=== PATIENT | female | born 2000 | race Hispanic/Latino ===

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

== ENCOUNTER 2020-12-25 07:12 | Emergency (ER) | payer BC ==
--- OUTSIDE RECORDS SUMMARY | 2020-12-25 07:16 | XMS REPORT | Continuity of Care Document ---
:2000 Author Organization [facility] t Address [address] [place] [address] Care Team Providers Name Role Phone Unavailable Unavailable Unavailable Problems This patient has no known problems. Allergies, Adverse Reactions, Alerts Allergy Allergy Status Severity Reaction(s) Onset Inactive Treating Comm ents Source Name Type Date Date Clinician No Known DA Active U [facility] Drug 06-30 Allergie 00:00: s 00 No Known DA Active U [facility] Drug 06-18 Allergie 00:00: s 00 Medications This patient has no known medications. Vital Signs Vital Name Observation Time Observation Value Comments Source Body Mass Index 2020-09-13 14:10:02 32.1 Height 2020-09-13 14:10:02 160.02\S\63 Weight 2020-09-13 14:10:02 07815.219\S\2896 Body Mass Index 2020-08-06 15:23:08 32.1 Height 2020-08-06 15:23:08 160.02\S\63 Weight 2020-08-06 15:23:08 07363.219\S\2896 NB Weight 2020-07-08 06:48:09 3100\S\109.349 Have you Lost Weight 2020-07-08 06:48:09 No Without Trying in the Past 6 Months? Attempted 2020-07-08 06:48:09 N Respiratory 2020-07-08 06:48:09 No respiratory distress /min ANDREA CHARGE Pulse Oximetry 2020-07-08 06:48:09 Single Pulse Ox /min 02 Sat by Pulse Oximetry 2020-07-08 06:48:09 98 /min Height 2020-07-08 06:48:09 160.02\S\63 Pulse Rate 2020-07-08 06:48:09 85 /min Pulse Strength 2020-07-08 06:48:09 Normal /min Pulse Assessment Method 2020-07-08 06:48:09 Palpation /min Respiratory Rate 2020-07-08 06:48:09 18 /min Respiratory Depth 2020-07-08 06:48:09 Normal /min Respiratory Effort 2020-07-08 06:48:09 Spontaneous /min Respiratory Pattern 2020-07-08 06:48:09 Normal /min Temperature 2020-07-08 06:48:09 36.6\S\97.9 Weight 2020-07-08 06:48:09 29857.626\S\2880 Respiratory 2020-07-03 16:24:24 No respiratory distress /min 02 Sat by Pulse Oximetry 2020-07-03 16:24:24 98 /min Height 2020-07-03 16:24:24 160.02\S\63 Pulse Rate 2020-07-03 16:24:24 85 /min Pulse Strength 2020-07-03 16:24:24 Normal /min Pulse Assessment Method 2020-07-03 16:24:24 Palpation /min Respiratory Rate 2020-07-03 16:24:24 18 /min Respiratory Depth 2020-07-03 16:24:24 Normal /min Respiratory Effort 2020-07-03 16:24:24 Spontaneous /min Respiratory Pattern 2020-07-03 16:24:24 Normal /min Temperature 2020-07-03 16:24:24 36.6\S\97.9 Weight 2020-07-03 16:24:24 85736.626\S\2880 ANDREA CHARGE Pulse Oximetry 2020-07-03 16:24:23 Single Pulse Ox /min NB Weight 2020-07-03 16:24:23 3100\S\109.349 Have you Lost Weight 2020-07-03 16:24:23 No Without Trying in the Past 6 Months? Attempted 2020-07-03 16:24:23 N Respiratory 2020-07-03 16:07:02 No respiratory distress /min 02 Sat by Pulse Oximetry 2020-07-03 16:07:02 98 /min Height 2020-07-03 16:07:02 160.02\S\63 Pulse Rate 2020-07-03 16:07:02 85 /min Pulse Strength 2020-07-03 16:07:02 Normal /min Pulse Assessment Method 2020-07-03 16:07:02 Palpation /min Respiratory Rate 2020-07-03 16:07:02 18 /min Respiratory Depth 2020-07-03 16:07:02 Normal /min Respiratory Effort 2020-07-03 16:07:02 Spontaneous /min Respiratory Pattern 2020-07-03 16:07:02 Normal /min Temperature 2020-07-03 16:07:02 36.6\S\97.9 Weight 2020-07-03 16:07:02 37285.626\S\2880 ANDREA CHARGE Pulse Oximetry 2020-07-03 16:07:02 Single Pulse Ox /min NB Weight 2020-07-03 16:07:02 3100\S\109.349 Have you Lost Weight 2020-07-03 16:07:02 No Without Trying in the Past 6 Months? Attempted 2020-07-03 16:07:02 N ANDREA CHARGE Pulse Oximetry 2020-07-03 16:06:31 Single Pulse Ox /min NB Weight 2020-07-03 16:06:31 3100\S\109.349 Have you Lost Weight 2020-07-03 16:06:31 No Without Trying in the Past 6 Months? Attempted 2020-07-03 16:06:31 N Respiratory 2020-07-03 16:06:31 No respiratory distress /min 02 Sat by Pulse Oximetry 2020-07-03 16:06:31 98 /min Height 2020-07-03 16:06:31 160.02\S\63 Pulse Rate 2020-07-03 16:06:31 85 /min Pulse Strength 2020-07-03 16:06:31 Normal /min Pulse Assessment Method 2020-07-03 16:06:31 Palpation /min Respiratory Rate 2020-07-03 16:06:31 18 /min Respiratory Depth 2020-07-03 16:06:31 Normal /min Respiratory Effort 2020-07-03 16:06:31 Spontaneous /min Respiratory Pattern 2020-07-03 16:06:31 Normal /min Temperature 2020-07-03 16:06:31 36.6\S\97.9 Weight 2020-07-03 16:06:31 81446.626\S\2880 ANDREA CHARGE Pulse Oximetry 2020-07-02 09:20:52 Single Pulse Ox /min NB Weight 2020-07-02 09:20:52 3100\S\109.349 Have you Lost Weight 2020-07-02 09:20:52 No Without Trying in the Past 6 Months? Attempted 2020-07-02 09:20:52 N Respiratory 2020-07-02 09:20:52 No respiratory distress /min 02 Sat by Pulse Oximetry 2020-07-02 09:20:52 98 /min Height 2020-07-02 09:20:52 160.02\S\63 Pulse Rate 2020-07-02 09:20:52 79 /min Respiratory Rate 2020-07-02 09:20:52 17 /min Respiratory Depth 2020-07-02 09:20:52 Normal /min Respiratory Effort 2020-07-02 09:20:52 Spontaneous /min Respiratory Pattern 2020-07-02 09:20:52 Normal /min Temperature 2020-07-02 09:20:52 36.7\S\98.1 Weight 2020-07-02 09:20:52 07002.626\S\2880 Attempted 2020-07-01 08:36:33 N Height 2020-07-01 08:36:33 160.02\S\63 Respiratory Rate 2020-07-01 08:36:33 16 /min Respiratory Depth 2020-07-01 08:36:33 Normal /min Respiratory Effort 2020-07-01 08:36:33 Spontaneous /min Respiratory Pattern 2020-07-01 08:36:33 Normal /min Temperature 2020-07-01 08:36:33 36.9\S\98.4 Weight 2020-07-01 08:36:33 28335.626\S\2880 ANDREA CHARGE Pulse Oximetry 2020-07-01 08:36:32 Single Pulse Ox /min NB Weight 2020-07-01 08:36:32 3100\S\109.349 Have you Lost Weight 2020-07-01 08:36:32 No Without Trying in the Past 6 Months? ANDREA CHARGE Pulse Oximetry 2020-07-01 08:20:11 Single Pulse Ox /min NB Weight 2020-07-01 08:20:11 3100\S\109.349 Have you Lost Weight 2020-07-01 08:20:11 No Without Trying in the Past 6 Months? Attempted 2020-07-01 08:20:11 N Height 2020-07-01 08:20:11 160.02\S\63 Respiratory Rate 2020-07-01 08:20:11 16 /min Respiratory Depth 2020-07-01 08:20:11 Normal /min Respiratory Effort 2020-07-01 08:20:11 Spontaneous /min Respiratory Pattern 2020-07-01 08:20:11 Normal /min Temperature 2020-07-01 08:20:11 36.9\S\98.4 Weight 2020-07-01 08:20:11 63688.626\S\2880 ANDREA CHARGE Pulse Oximetry 2020-07-01 08:04:20 Single Pulse Ox /min NB Weight 2020-07-01 08:04:20 3100\S\109.349 Have you Lost Weight 2020-07-01 08:04:20 No Without Trying in the Past 6 Months? Attempted 2020-07-01 08:04:20 N Height 2020-07-01 08:04:20 160.02\S\63 Respiratory Rate 2020-07-01 08:04:20 16 /min Respiratory Depth 2020-07-01 08:04:20 Normal /min Respiratory Effort 2020-07-01 08:04:20 Spontaneous /min Respiratory Pattern 2020-07-01 08:04:20 Normal /min Temperature 2020-07-01 08:04:20 36.9\S\98.4 Weight 2020-07-01 08:04:20 13781.626\S\2880 ANDREA CHARGE Pulse Oximetry 2020-07-01 07:30:29 Single Pulse Ox /min NB Weight 2020-07-01 07:30:29 3100\S\109.349 Have you Lost Weight 2020-07-01 07:30:29 No Without Trying in the Past 6 Months? Attempted 2020-07-01 07:30:29 N Height 2020-07-01 07:30:29 160.02\S\63 Respiratory Rate 2020-07-01 07:30:29 16 /min Respiratory Depth 2020-07-01 07:30:29 Normal /min Respiratory Effort 2020-07-01 07:30:29 Spontaneous /min Respiratory Pattern 2020-07-01 07:30:29 Normal /min Temperature 2020-07-01 07:30:29 36.9\S\98.4 Weight 2020-07-01 07:30:29 71998.626\S\2880 ANDREA CHARGE Pulse Oximetry 2020-07-01 06:52:36 Single Pulse Ox /min NB Weight 2020-07-01 06:52:36 3100\S\109.349 Have you Lost Weight 2020-07-01 06:52:36 No Without Trying in the Past 6 Months? Attempted 2020-07-01 06:52:36 N Height 2020-07-01 06:52:36 160.02\S\63 Respiratory Rate 2020-07-01 06:52:36 16 /min Respiratory Depth 2020-07-01 06:52:36 Normal /min Respiratory Effort 2020-07-01 06:52:36 Spontaneous /min Respiratory Pattern 2020-07-01 06:52:36 Normal /min Temperature 2020-07-01 06:52:36 36.8\S\98.2 Weight 2020-07-01 06:52:36 67233.626\S\2880 Have you Lost Weight 2020-06-30 09:51:00 No Without Trying in the Past 6 Months? Height 2020-06-30 09:51:00 160.02\S\63 Respiratory Rate 2020-06-30 09:51:00 16 /min Respiratory Depth 2020-06-30 09:51:00 Normal /min Respiratory Effort 2020-06-30 09:51:00 Spontaneous /min Respiratory Pattern 2020-06-30 09:51:00 Normal /min Temperature 2020-06-30 09:51:00 36.8\S\98.2 Weight 2020-06-30 09:51:00 31361.626\S\2880 Have you Lost Weight 2020-06-30 09:48:56 No Without Trying in the Past 6 Months? Height 2020-06-30 09:48:56 160.02\S\63 Respiratory Rate 2020-06-30 09:48:56 16 /min Respiratory Depth 2020-06-30 09:48:56 Normal /min Respiratory Effort 2020-06-30 09:48:56 Spontaneous /min Respiratory Pattern 2020-06-30 09:48:56 Normal /min Temperature 2020-06-30 09:48:56 36.8\S\98.2 Weight 2020-06-30 09:48:56 01831.626\S\2880 Have you Lost Weight 2020-06-30 09:43:18 No Without Trying in the Past 6 Months? Height 2020-06-30 09:43:18 160.02\S\63 Respiratory Rate 2020-06-30 09:43:18 16 /min Respiratory Depth 2020-06-30 09:43:18 Normal /min Respiratory Effort 2020-06-30 09:43:18 Spontaneous /min Respiratory Pattern 2020-06-30 09:43:18 Normal /min Temperature 2020-06-30 09:43:18 36.8\S\98.2 Weight 2020-06-30 09:43:18 69222.626\S\2880 Have you Lost Weight 2020-06-30 09:36:40 No Without Trying in the Past 6 Months? Height 2020-06-30 09:36:40 160.02\S\63 Respiratory Rate 2020-06-30 09:36:40 16 /min Respiratory Depth 2020-06-30 09:36:40 Normal /min Respiratory Effort 2020-06-30 09:36:40 Spontaneous /min Respiratory Pattern 2020-06-30 09:36:40 Normal /min Temperature 2020-06-30 09:36:40 36.8\S\98.2 Weight 2020-06-30 09:36:40 94685.626\S\2880 Have you Lost Weight 2020-06-30 09:31:32 No Without Trying in the Past 6 Months? Height 2020-06-30 09:31:32 160.02\S\63 Respiratory Rate 2020-06-30 09:31:32 16 /min Respiratory Depth 2020-06-30 09:31:32 Normal /min Respiratory Effort 2020-06-30 09:31:32 Spontaneous /min Respiratory Pattern 2020-06-30 09:31:32 Normal /min Temperature 2020-06-30 09:31:32 36.8\S\98.2 Weight 2020-06-30 09:31:32 10527.626\S\2880 Have you Lost Weight 2020-06-30 09:30:00 No Without Trying in the Past 6 Months? Height 2020-06-30 09:30:00 160.02\S\63 Respiratory Rate 2020-06-30 09:30:00 16 /min Respiratory Depth 2020-06-30 09:30:00 Normal /min Respiratory Effort 2020-06-30 09:30:00 Spontaneous /min Respiratory Pattern 2020-06-30 09:30:00 Normal /min Temperature 2020-06-30 09:30:00 36.8\S\98.2 Weight 2020-06-30 09:30:00 98030.626\S\2880 Have you Lost Weight 2020-06-30 08:20:50 No Without Trying in the Past 6 Months? Height 2020-06-30 08:20:50 160.02\S\63 Weight 2020-06-30 08:20:50 46787.626\S\2880 Height 2020-06-30 08:17:15 160.02\S\63 Weight 2020-06-30 08:17:15 45795.626\S\2880 Height 2020-06-30 08:16:45 160.02\S\63 HEIGHT 2020-06-30 08:16:00 160.02 cm WEIGHT 2020-06-30 08:16:00 81.354661 kg Body Mass Index 2020-06-21 10:15:50 32.1 Height 2020-06-21 10:15:50 160.02\S\63 Weight 2020-06-21 10:15:50 96459.219\S\2896 Body Mass Index 2020-06-19 00:16:59 32.1 Height 2020-06-19 00:16:59 160.02\S\63 Weight 2020-06-19 00:16:59 30446.219\S\2896 Body Mass Index 2020-06-18 10:07:20 32.1 Height 2020-06-18 10:07:20 160.02\S\63 Weight 2020-06-18 10:07:20 38156.219\S\2896 WEIGHT 2020-06-18 10:06:00 82.771368 kg HEIGHT 2020-06-18 10:06:00 160.02 cm Procedures This patient has no known procedures. Results This patient has no known results.
[2020-12-25 08:26] LABS: Urine Blood Negative (Negative); Urine Glucose Negative (Negative); Urine Protein Negative (Negative); Urine Specific Gravity >=1.030 (1.005-1.030)
--- NOTE | 2020-12-25 09:45 | EDPHYS ---
Physician Documentation [facility] Name: Jud Rodriguez Age: 20 yrs Sex: Female : 2000 Arrival Date: 12/25/2020 Time: 07:15 Bed Waiting Private MD: ED Physician Micheal Lester HPI: 12/25 09:01 This 20 yrs old Female presents to ER via Ambulatory with complaints of Cough, jr8 Congestion. 09:01 The patient or guardian reports cough, that is intermittent, described as mild, with no jr8 sputum. Onset: The symptoms/episode began/occurred acutely, 6 day(s) ago. Severity of symptoms: At their worst the symptoms were mild, in the emergency department the symptoms are unchanged. Modifying factors: The symptoms are alleviated by nothing, the symptoms are aggravated by nothing. Associated signs and symptoms: Pertinent positives: nausea, rhinorrhea, sore throat. The patient has not experienced similar symptoms in the past. The patient has not recently seen a physician. 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 - Social history:: Smoking status: Patient denies any tobacco usage or history of. ROS: 09:01 Eyes: Negative for injury, pain, redness, and discharge, Neck: Negative for injury, jr8 pain, and swelling, Cardiovascular: Negative for chest pain, palpitations, and edema, Back: Negative for injury and pain, MS/Extremity: Negative for injury and deformity, Skin: Negative for injury, rash, and discoloration, Neuro: Negative for headache, weakness, numbness, tingling, and seizure. 09:01 ENT: Positive for rhinorrhea, sore throat. 09:01 Respiratory: Positive for cough, Negative for shortness of breath, sputum production, wheezing. 09:01 Abdomen/GI: Positive for nausea, Negative for abdominal pain, vomiting, diarrhea. Exam: 09:01 Constitutional: This is a well developed, well nourished patient who is awake, alert, jr8 and in no acute distress. ENT: Nares patent. No nasal discharge, no septal abnormalities noted. Tympanic membranes are normal and external auditory canals are clear. Oropharynx with no redness, swelling, or masses, exudates, or evidence of obstruction, uvula midline. Mucous membranes moist. Neck: Trachea midline, no thyromegaly or masses palpated, and no cervical lymphadenopathy. Supple, full range of motion without nuchal rigidity, or vertebral point tenderness. No Meningismus. Cardiovascular: Regular rate and rhythm with a normal S1 and S2. No gallops, murmurs, or rubs. Normal PMI, no JVD. No pulse deficits. Respiratory: Lungs have equal breath sounds bilaterally, clear to auscultation and percussion. No rales, rhonchi or wheezes noted. No increased work of breathing, no retractions or nasal flaring. Abdomen/GI: Soft, non-tender, with normal bowel sounds. No distension or tympany. No guarding or rebound. No evidence of tenderness throughout. Back: No spinal tenderness. No costovertebral tenderness. Full range of motion. Skin: Warm, dry with normal turgor. Normal color with no rashes, no lesions, and no evidence of cellulitis. MS/ Extremity: Pulses equal, no cyanosis. Neurovascular intact. Full, normal range of motion. Neuro: Awake and alert, GCS 15, oriented to person, place, time, and situation. Cranial nerves II-XII grossly intact. Motor strength 5/5 in all extremities. Sensory grossly intact. Cerebellar exam normal. Normal gait. Vital Signs: 07:38 BP 135 / 104; Pulse 106; Resp 18; Temp 97.2(TE); Pulse Ox 100% ; Weight 70.31 kg; sv Height 5 ft. 3 in. (160.02 cm); Pain 0/10; 07:38 Body Mass Index 27.46 (70.31 kg, 160.02 cm) sv MDM: 08:13 Patient medically screened. jr8 09:42 Data reviewed: vital signs, nurses notes, lab test result(s), and as a result, I will jr8 discharge patient. Data interpreted: Pulse oximetry: on room air is 100 %. Interpretation: normal. Counseling: I had a detailed discussion with the patient and/or guardian regarding: the historical points, exam findings, and any diagnostic results supporting the discharge/admit diagnosis, lab results, the need for outpatient follow up, a family practitioner, an OB/Gyne specialist, to return to the emergency department if symptoms worsen or persist or if there are any questions or concerns that arise at home. ED course: Patient with no active fever here. Covid negative. Patient had positive test here. Will have patient start on vitamins and follow-up with her obstetrics physician. Otherwise recommended [id number] antihistamines for the congestion.. 12/25 08:26 Order name: Urine Dipstick-Ancillary; Complete Time: 08:32 EDMS 12/25 08:54 Order name: Urine --Ancillary (enter results) eb 12/25 09:40 Order name: SARS-COV-2 RT PCR; Complete Time: 09:42 EDMS Administered Medications: No medications were administered Disposition: 10:46 Co-signature as Attending Physician, Micheal Lester MD. rn Disposition Summary: 12/25/20 09:45 Discharge Ordered Location: Home jr8 Problem: new jr8 Symptoms: are unchanged jr8 Condition: Stable jr8 Diagnosis - Acute upper respiratory infection, unspecified jr8 - Encounter for test, result positive jr8 Followup: jr8 - With: Private Physician - When: 5 - 6 days - Reason: Recheck today's complaints, Continuance of care, Re-evaluation by your physician Discharge Instructions: - Discharge Summary Sheet jr8 - Upper Respiratory Infection, Adult jr8 - Morning Sickness jr8 Forms: - Medication Reconciliation Form jr8 - Thank You Letter jr8 - Antibiotic Education jr8 - Prescription Opioid Use jr8 Prescriptions: - promethazine-DM 6.25-15 mg/5 mL Oral syrup - take 5 milliliter by ORAL route every 4-6 hours as needed, not to exceed 30 mL jr8 in 24 hours; 100 milliliter; Refills: 0, Product Selection Permitted Signatures: Dispatcher [employer] EDMS Tiesha Velasco RN RN sv Nieto, Roman, MD MD rn Roszak, Josh, PA PA jr8 Corrections: (The following items were deleted from the chart) 07:37 07:37 PSHx: Unable to Obtain; [facility] 08:05 07:37 Chest Pa And Lat (2 Views)+RAD.RAD.BRZ ordered. EDMS EDMS 08:27 08:05 Chest Single View ordered. EDMS EDMS 08:46 08:17 CORONAVIRUS+MR.LAB.BRZ ordered. EDMS EDMS
--- NOTE | 2020-12-25 09:45 | ER ---
Nurse's Notes [facility] Name: Jud Rodriguez Age: 20 yrs Sex: Female : 2000 Arrival Date: 12/25/2020 Time: 07:15 Bed Waiting Private MD: Diagnosis: Acute upper respiratory infection, unspecified;Encounter for test, result positive Presentation: 12/25 07:36 Chief complaint: Patient states: congestion, non-productive cough (more at night), sv sneezing,sore throat, vomiting since Sunday. Coronavirus screen: Client denies travel out of the [place] in the last 14 days. At this time, the client does not indicate any symptoms associated with coronavirus-19. Ebola Screen: No symptoms or risks identified at this time. Risk Assessment: Do you want to hurt yourself or someone else? Patient reports no desire to harm self or others. Onset of symptoms was December 20, 2020. 07:36 Method Of Arrival: Ambulatory sv 07:36 Acuity: LANE 4 sv 07:38 Initial Sepsis Screen: Does the patient meet any 2 criteria? HR > 90 bpm. No. Patient's sv initial sepsis screen is negative. Does the patient have a suspected source of infection? No. Patient's initial sepsis screen is negative. Triage Assessment: 07:36 General: Appears in no apparent distress. comfortable, Behavior is calm, cooperative, sv appropriate for age. Pain: Denies pain. Neuro: Level of Consciousness is awake, alert, obeys commands, Oriented to person, place, time, situation, Gait is steady. Respiratory: Respiratory effort is even, unlabored. 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 - Social history:: Smoking status: Patient denies any tobacco usage or history of. Screenin:51 Abuse screen: Denies threats or abuse. Denies injuries from another. Nutritional iw screening: No deficits noted. Tuberculosis screening: No symptoms or risk factors identified. Fall Risk None identified. Assessment: 08:20 General: Appears in no apparent distress. comfortable, Behavior is calm, cooperative. iw Cardiovascular: Patient's skin is warm and dry. Respiratory: Airway is patent Breath sounds are clear bilaterally. Derm: Skin is intact, is healthy with good turgor. Musculoskeletal: Range of motion: intact in all extremities. Vital Signs: 07:38 BP 135 / 104; Pulse 106; Resp 18; Temp 97.2(TE); Pulse Ox 100% ; Weight 70.31 kg; sv Height 5 ft. 3 in. (160.02 cm); Pain 0/10; 07:38 Body Mass Index 27.46 (70.31 kg, 160.02 cm) sv ED Course: 07:15 Patient arrived in ED. rg4 07:35 Arm band placed on. sv 07:37 Triage completed. sv 08:12 Vikas Berger PA is PHCP. jr8 08:13 Micheal Lester MD is Attending Physician. jr8 08:20 Patient has correct armband on for positive identification. iw 08:26 Urine Dipstick-Ancillary Sent. mh5 08:26 Urine collected: clean catch specimen, clear, COVID swab sent to lab. 5 08:34 Joyce Bolton, RN is Primary Nurse. iw 09:50 No provider procedures requiring assistance completed. Patient did not have IV access iw during this emergency room visit. Administered Medications: No medications were administered Outcome: 09:45 Discharge ordered by . jr 09:50 Discharged to home ambulatory, with friend. iw 09:50 Condition: good 09:50 Discharge instructions given to patient, Instructed on discharge instructions, follow up and referral plans. Demonstrated understanding of instructions, follow-up care. 09:51 Patient left the ED. iw Signatures: Tiesha Velasco RN RN Joyce Bolton, RN RN Vikas Berger PA PA jr8 Garcia, Rubi Cheri Moe [facility] Corrections: (The following items were deleted from the chart) 07:37 07:37 PSHx: Unable to Obtain; sv sv 07:39 07:36 Chief complaint: Patient states: congestion, non-productive cough (more at sv night), sneezing, vomiting since Sunday. sv 08:46 08:26 CORONAVIRUS+MR.LAB.BRZ drawn and sent. 5 EDMS
[2020-12-25 09:57] VITALS: BP 135/104; TEMP 97.2; O2SAT 100
== END 2020-12-25 09:51 | disposition home or self-care (01) ==
LOC: ER 07:12
DX: J06.9 Acute upper respiratory infection, unspecified (principal); Z32.01 Encounter for pregnancy test, result positive; Z20.822 Contact with and (suspected) exposure to COVID-19
CPT/HCPCS: 81025; 81003; 99283; U0003

== ENCOUNTER 2021-12-09 04:51 | Emergency (ER) | payer BC, OTHER ==
[2021-12-09 08:19] LABS: Absolute Lymphocytes (CBC) 2.7 K/uL (0.7-4.9); Lymphocytes % 29.6 % (15.3-44.8); MCV 78.9 fL (80-100); MPV 8.4 fL (7.6-11.3); RBC Red Blood Cell Count 4.94 M/uL (3.86-4.86)
[2021-12-09] MEDS ORDERED: KETOROLAC 30 MG/ML INJ ONE (08:22)
[2021-12-09 08:30] LABS: Albumin 3.8 g/dL (3.4-5.0); Bilirubin Total 0.2 mg/dL (0.2-1.0); Potassium 4.2 mmol/L (3.5-5.1); Protein, Total 7.9 g/dL (6.4-8.2)
[2021-12-09] MEDS ORDERED: ONDANSETRON 4 MG/2 ML VIAL ONE (09:17)
[2021-12-09] MEDS ORDERED: MORPHINE 2 MG/ML SYR ONE (09:17)
[2021-12-09] MEDS ORDERED: NA CHLORIDE 0.9% 1,000 ML ONE (09:17)
--- NOTE | 2021-12-09 09:33 | RAD REPORT ---
EXAM DESCRIPTION: US - Transvaginal Study Probe - 12/09/2021 9:15 am CLINICAL HISTORY: ABD PAIN COMPARISON: Abdomen Pelvis W Contrast dated 12/09/2021 TECHNIQUE: Endovaginal sonography was performed. FINDINGS: Normal size uterus is present with no myometrial mass. Endometrium is 3 mm with no mass, p olyp or endometrial abnormality seen. Normal size right ovary is seen with small follicles present. Normal blood flow seen in the stroma. N ormal blood flow seen in the left ovary. Approximately 2.8 centimeter oval area of heterogeneous echo genicity seen in the left ovary. There is a small amount of fluid adjacent to the uterus, bladder and left ovary. No worrisome solid mass. No fallopian tube dilatation confirmed. IMPRESSION: Approximately 2.8 centimeter heterogeneous left ovarian mass with adjacent fluid in the adnexa on the left and adjacent to the uterus and bladder. Ruptured or leaking left ovarian cyst with hemorrhage is the most likely etiology.
--- NOTE | 2021-12-09 09:39 | RAD REPORT ---
EXAM DESCRIPTION: CT - Abdomen Pelvis W Contrast - 12/09/2021 8:57 am CLINICAL HISTORY: Abdominal pain, acute, nonlocalized COMPARISON: Abdomen Pelvis W Contrast dated 05/06/2018 TECHNIQUE: Biphasic, helical CT imaging of the abdomen and pelvis was performed following 100 ml non -ionic IV contrast. No oral contrast administered. All CT scans are performed using dose optimization technique as appropriate and may include automated exposure control or mA/KV adjustment according to patient size. FINDINGS: No suspicious findings in the lung bases. The liver, spleen, and pancreas show no suspicious findings. Gallbladder and biliary tree are also wi thout suspicious finding. Symmetric renal function is seen with no hydronephrosis or suspicious renal mass. No pyelonephritis o r acute parenchymal process. No bladder abnormalities. No adrenal abnormalities. No uterine abnormality identified. No focal right ovarian finding seen. Left ovary appears to contain a 2.8 centimeter cyst. There is a minimal amount of fluid adjacent to the left ovary, bladder and ut erus. No dilated bowel loops or bowel wall thickening. Appendix is normal. No pneumatosis or free air. No f ocal inflammatory stranding. No hernia, mass or bulky lymphadenopathy. No suspicious bony findings. IMPRESSION: Contrast enhanced CT abdomen and pelvis showing no emergent finding. Probable left ovarian cyst rupture with minimal hemorrhagic component within the cyst. No large hemat claribel or emergent pelvic finding.
--- NOTE | 2021-12-09 09:41 | ER ---
Nurse's Notes [facility] Name: Jud Rodriguez Age: 21 yrs Sex: Female : 2000 Arrival Date: 12/09/2021 Time: 04:54 Bed 16 Private MD: Diagnosis: Pelvic and perineal pain;Dysmenorrhea, unspecified;Other ovarian cysts-left , hemorrhagic Presentation: 12/09 05:37 Chief complaint: Patient states: "I think I have an ovarian cyst on my left ovary. I vc1 had one in 2018 and the pain feels similar. I also just had a baby 3 months ago.". Coronavirus screen: Vaccine status: Patient reports being unvaccinated. At this time, the client does not indicate any symptoms associated with coronavirus-19. Ebola Screen: No symptoms or risks identified at this time. Initial Sepsis Screen: Does the patient meet any 2 criteria? HR > 90 bpm. No. Patient's initial sepsis screen is negative. Does the patient have a suspected source of infection? No. Patient's initial sepsis screen is negative. Risk Assessment: Do you want to hurt yourself or someone else? Patient reports no desire to harm self or others. Onset of symptoms was December 09, 2021 at 04:30. 05:37 Method Of Arrival: Ambulatory vc1 05:37 Acuity: LANE 3 vc1 Triage Assessment: 06:10 General: Appears uncomfortable, Behavior is calm, cooperative. Pain: Complains of pain kd3 in left lower quadrant. Neuro: Level of Consciousness is awake, alert, obeys commands, Oriented to person, place, time, situation. Respiratory: Airway is patent Trachea midline Respiratory effort is even, unlabored, Respiratory pattern is regular. 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 - Social history:: Smoking status: Patient denies any tobacco usage or history of. - Family history:: not pertinent. Screenin:45 Abuse screen: Denies threats or abuse. Nutritional screening: No deficits noted. vc1 Tuberculosis screening: No symptoms or risk factors identified. Fall Risk None identified. Assessment: 07:30 General: Appears in no apparent distress. uncomfortable, Behavior is calm, cooperative, jl7 appropriate for age. Pain: Complains of pain in left lower quadrant Pain radiates to anterior aspect of left lateral abdomen Pain currently is 6 out of 10 on a pain scale. at worst was 9 out of 10 on a pain scale. Quality of pain is described as sharp, Pain began 3 hours ago. Is continuous. Neuro: Level of Consciousness is awake, alert, obeys commands, Oriented to person, place, time, situation. Cardiovascular: Patient's skin is warm and dry. Respiratory: Airway is patent Respiratory effort is even, unlabored, Respiratory pattern is regular, symmetrical. GI: Patient currently denies diarrhea, nausea, vomiting. : Denies burning with urination. Derm: Skin is pink, warm \\T\\ dry. 08:30 Reassessment: Patient appears in no apparent distress at this time. No changes from jl7 previously documented assessment. Patient and/or family updated on plan of care and expected duration. Pain level reassessed. Patient is alert, oriented x 3, equal unlabored respirations, skin warm/dry/pink. Vital Signs: 05:37 BP 136 / 76; Pulse 105; Resp 18; Temp 97.6(O); Pulse Ox 100% ; Weight 68.04 kg; Height vc1 5 ft. 3 in. (160.02 cm); Pain 7/10; 09:19 BP 128 / 86; Pulse 80; Resp 15; Pulse Ox 100% ; jl7 05:37 Body Mass Index 26.57 (68.04 kg, 160.02 cm) vc1 ED Course: 04:54 Patient arrived in ED. bp1 05:40 Honorio Perez MD is Attending Physician. mh7 05:41 Triage completed. vc1 05:44 Arm band placed on right wrist. vc1 05:45 Patient has correct armband on for positive identification. Placed in gown. Cardiac vc1 monitor on. Pulse ox on. 06:10 Sabina Fry RN is Primary Nurse. kd3 07:21 Attending Physician role handed off by Honorio Perez MD [facility] 07:21 Ronnie Sands MD is Attending Physician. phan 07:30 Initial lab(s) drawn, by nh, sent to lab. Urine collected: clean catch specimen, clear. jl7 Inserted saline lock: 20 gauge in left antecubital area, using aseptic technique. Blood collected. 08:22 Primary Nurse role handed off by Sabina Fry RN jl7 08:22 Venita Munroe RN is Primary Nurse. jl7 08:59 CT Abd/Pelvis - IV Contrast Only In Process Unspecified. EDMS 09:16 US Transvaginal Study (Probe) In Process Unspecified. EDNJ 09:41 Soto Payne MD is Referral Physician. [facility] 09:54 No provider procedures requiring assistance completed. IV discontinued, intact, jl7 bleeding controlled, No redness/swelling at site. Pressure dressing applied. Administered Medications: 08:25 Drug: Ketorolac 15 mg Route: IVP; Site: left antecubital; jl7 08:45 Follow up: Response: No adverse reaction; Pain is unchanged, physician notified jl7 09:15 Drug: NS 0.9% 1000 ml Route: IV; Rate: 1 bolus; Site: left antecubital; jl7 09:15 Drug: Zofran (Ondansetron) 4 mg Route: IVP; Site: left antecubital; jl7 09:53 Follow up: Response: No adverse reaction jl7 09:18 Drug: morphine 2 mg Route: IVP; Infused Over: 4 mins; Site: left antecubital; jl7 09:30 Follow up: Response: No adverse reaction; Pain is decreased jl7 Medication: 06:12 VIS not applicable for this client. kd3 Outcome: 09:41 Discharge ordered by . phan 09:54 Discharged to home ambulatory. jl7 09:54 Condition: stable 09:54 Discharge instructions given to patient, Instructed on discharge instructions, follow up and referral plans. medication usage, Demonstrated understanding of instructions, follow-up care, medications, Prescriptions given X 2. 09:54 Patient left the ED. jl7 Signatures: Dispatcher [employer] EDNJ Ronnie Sands MD MD cha Leal, Jahala, RN RN jl7 Manisha Long Maurice, MD MD 7 Sabina Fry, RN RN kd3 Anastasia, Trixie, RN RN vc1
--- NOTE | 2021-12-09 09:41 | EDPHYS ---
Physician Documentation [facility] Name: Jud Rodriguez Age: 21 yrs Sex: Female : 2000 Arrival Date: 12/09/2021 Time: 04:54 Bed 16 Private MD: GILDA Physician Ronnie Sands HPI: 12/09 09:12 This 21 yrs old Female presents to ER via Ambulatory with complaints of Pelvic phan Pain. 09:12 The patient presents with pelvic pain, that is located in/on the right lower quadrant phan and left lower quadrant. Onset: The symptoms/episode began/occurred this morning. Modifying factors: The symptoms are alleviated by remaining still, the symptoms are aggravated by movement, walking. Associated signs and symptoms: The patient has no apparent associated signs or symptoms. Severity of symptoms: At their worst the symptoms were moderate, in the emergency department the symptoms are unchanged. The patient is sexually active, reportedly has a single partner. The patient has experienced similar episodes in the past, a few times. 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 - Social history:: Smoking status: Patient denies any tobacco usage or history of. - Family history:: not pertinent. ROS: 09:12 Constitutional: Negative for fever, chills, and weight loss, Eyes: Negative for injury, phan pain, redness, and discharge, ENT: Negative for injury, pain, and discharge, Neck: Negative for injury, pain, and swelling, Cardiovascular: Negative for chest pain, palpitations, and edema, Respiratory: Negative for shortness of breath, cough, wheezing, and pleuritic chest pain, Back: Negative for injury and pain, : Negative for injury, bleeding, discharge, and swelling, MS/Extremity: Negative for injury and deformity, Skin: Negative for injury, rash, and discoloration, Neuro: Negative for headache, weakness, numbness, tingling, and seizure, Psych: Negative for depression, anxiety, suicide ideation, homicidal ideation, and hallucinations, Allergy/Immunology: Negative for hives, rash, and allergies, Endocrine: Negative for neck swelling, polydipsia, polyuria, polyphagia, and marked weight changes, Hematologic/Lymphatic: Negative for swollen nodes, abnormal bleeding, and unusual bruising. 09:12 Abdomen/GI: Positive for abdominal pain, abdominal cramps, of the right lower quadrant and left lower quadrant. Exam: 09:12 Constitutional: This is a well developed, well nourished patient who is awake, alert, phan and in no acute distress. Head/Face: Normocephalic, atraumatic. Eyes: Pupils equal round and reactive to light, extra-ocular motions intact. Lids and lashes normal. Conjunctiva and sclera are non-icteric and not injected. Cornea within normal limits. Periorbital areas with no swelling, redness, or edema. ENT: Nares patent. No nasal discharge, no septal abnormalities noted. Tympanic membranes are normal and external auditory canals are clear. Oropharynx with no redness, swelling, or masses, exudates, or evidence of obstruction, uvula midline. Mucous membranes moist. Neck: Trachea midline, no thyromegaly or masses palpated, and no cervical lymphadenopathy. Supple, full range of motion without nuchal rigidity, or vertebral point tenderness. No Meningismus. Chest/axilla: Normal chest wall appearance and motion. Nontender with no deformity. No lesions are appreciated. Cardiovascular: Regular rate and rhythm with a normal S1 and S2. No gallops, murmurs, or rubs. Normal PMI, no JVD. No pulse deficits. Respiratory: Lungs have equal breath sounds bilaterally, clear to auscultation and percussion. No rales, rhonchi or wheezes noted. No increased work of breathing, no retractions or nasal flaring. Back: No spinal tenderness. No costovertebral tenderness. Full range of motion. Skin: Warm, dry with normal turgor. Normal color with no rashes, no lesions, and no evidence of cellulitis. MS/ Extremity: Pulses equal, no cyanosis. Neurovascular intact. Full, normal range of motion. Neuro: Awake and alert, GCS 15, oriented to person, place, time, and situation. Cranial nerves II-XII grossly intact. Motor strength 5/5 in all extremities. Sensory grossly intact. Cerebellar exam normal. Normal gait. Psych: Awake, alert, with orientation to person, place and time. Behavior, mood, and affect are within normal limits. 09:12 Abdomen/GI: Inspection: abdomen appears normal, Bowel sounds: normal, Palpation: mild abdominal tenderness, in the right lower quadrant and left lower quadrant, Liver: no appreciated palpable abnormalities, Hernia: not appreciated. Vital Signs: 05:37 BP 136 / 76; Pulse 105; Resp 18; Temp 97.6(O); Pulse Ox 100% ; Weight 68.04 kg; Height vc1 5 ft. 3 in. (160.02 cm); Pain 7/10; 09:19 BP 128 / 86; Pulse 80; Resp 15; Pulse Ox 100% ; jl7 05:37 Body Mass Index 26.57 (68.04 kg, 160.02 cm) vc1 MDM: 07:21 Patient medically screened. [facility] 09:17 Differential diagnosis: dysmenorrhea, ectopic , endometriosis, nonspecific phan abdominal pain, ovarian cyst, uterine fibroids, urinary tract infection. Data reviewed: vital signs, nurses notes, lab test result(s), radiologic studies, CT scan. Data interpreted: quality assurance monitor: not applicable for this patient encounter. rate is 105 beats/min, rhythm is regular, Pulse oximetry: on room air is 100 %. Counseling: I had a detailed discussion with the patient and/or guardian regarding: the historical points, exam findings, and any diagnostic results supporting the discharge/admit diagnosis, lab results, radiology results, the need for outpatient follow up, for definitive care, an OB/Gyne specialist. 12/09 07:04 Order name: CBC with Diff; Complete Time: 08:35 [facility] 12/09 07:04 Order name: CMP; Complete Time: 08:35 [facility] 12/09 07:04 Order name: Lipase; Complete Time: 08:35 [facility] 12/09 08:28 Order name: Urine Dipstick--Ancillary (enter results) 12/09 08:28 Order name: Urine --Ancillary (enter results) 12/09 08:37 Order name: US Transvaginal Study (Probe); Complete Time: 09:39 [facility] 12/09 07:04 Order name: IV Saline Lock; Complete Time: 07:58 [facility] 12/09 07:04 Order name: Labs collected and sent; Complete Time: 07:58 [facility] 12/09 07:04 Order name: Urine Dipstick-Ancillary (obtain specimen); Complete Time: 08:22 [facility] 12/09 08:37 Order name: CT Abd/Pelvis - IV Contrast Only; Complete Time: 09:40 [facility] 12/09 07:04 Order name: Urine Test (obtain specimen); Complete Time: 08:22 [facility] Administered Medications: 08:25 Drug: Ketorolac 15 mg Route: IVP; Site: left antecubital; jl7 08:45 Follow up: Response: No adverse reaction; Pain is unchanged, physician notified 7 09:15 Drug: NS 0.9% 1000 ml Route: IV; Rate: 1 bolus; Site: left antecubital; jl7 09:15 Drug: Zofran (Ondansetron) 4 mg Route: IVP; Site: left antecubital; jl7 09:53 Follow up: Response: No adverse reaction [facility] 09:18 Drug: morphine 2 mg Route: IVP; Infused Over: 4 mins; Site: left antecubital; jl7 09:30 Follow up: Response: No adverse reaction; Pain is decreased jl7 Disposition Summary: 12/09/21 09:41 Discharge Ordered Location: Home phan Problem: new phan Symptoms: have improved phan Condition: Stable phan Diagnosis - Pelvic and perineal pain phan - Dysmenorrhea, unspecified phan - Other ovarian cysts - left , hemorrhagic phan Followup: phan - With: Private Physician - When: 2 - 3 days - Reason: Recheck today's complaints, Continuance of care, Re-evaluation by your physician Followup: phan - With: - When: 2 - 3 days - Reason: Recheck today's complaints, Re-evaluation by your physician Discharge Instructions: - Discharge Summary Sheet phan - Abdominal Pain, Adult phan - Dysmenorrhea phan - Pelvic Pain, Female, [id number] phan - Abdominal Pain, Adult, [id number] phan - Ovarian Cyst phan - Dysmenorrhea, [id number] phan - Ovarian Cyst, [id number] phan Forms: - Medication Reconciliation Form phan - Thank You Letter phan - Antibiotic Education phan - Prescription Opioid Use phan Prescriptions: - Zofran 4 mg Oral Tablet - take 1 tablet by ORAL route every 12 hours As needed; 20 tablet; Refills: 0, [facility] Product Selection Permitted - Diclofenac Sodium 75 mg Oral tablet,delayed release (DR/EC) - take 1 tablet by ORAL route 2 times per day; 2 tablet; Refills: 0, Product phan Selection Permitted - Tylenol-Codeine #3 300 mg-30 mg Oral - take 2 tablet by ORAL route every 6 hours; 15 tablet; Refills: 0, Product phan Selection Permitted Signatures: Dispatcher [employer] Ronnie Luna MD MD cha Leal, Jahala, RN RN jl7 Honorio Perez MD MD [id number] Trixie Oconnor, RN RN vc1
[2021-12-09 10:10] VITALS: TEMP 97.6; O2SAT 100
[2021-12-09 10:16] VITALS: BP 128/86
[2021-12-09 14:51] LABS: Urine Specific Gravity 1.025 (1.005-1.030); Urine Specific Gravity/Preg 1.025 (1.005-1.030); Urine pH 5.5 (5.0-7.0)
== END 2021-12-09 09:54 | disposition home or self-care (01) ==
LOC: ER 04:51
DX: R10.2 Pelvic and perineal pain (principal); N94.6 Dysmenorrhea, unspecified; N83.202 Unspecified ovarian cyst, left side
CPT/HCPCS: 85025; 36415; 81025; 81003; 83690; 80053; 74177; 76830; 96375; 96374; 99284; Q9967; J2270; J7030; J2405